=== PATIENT | male | born 1965 | race African-American/Black ===

== ENCOUNTER → 2020-01-22 | Day surgery (SDC) | payer OTHER ==
[2020-01-19 14:24] LABS: BASOPHILS # (AUTO) 0.1 (0.0-0.1); BASOPHILS % 0.5 % (0.0-1.0); EOSINOPHILS # (AUTO) 0.4 (0.0-0.4); EOSINOPHILS % 3.4 % (0.0-6.0); HEMATOCRIT 51.7 % (38.2-49.6); HEMOGLOBIN 16.5 g/dL (14.0-18.0); LYMPHOCYTES # (AUTO) 1.7 (1.0-3.2); LYMPHOCYTES % 15.2 % (18.0-39.1); MEAN CORPUSCULAR HGB CONC 31.9 g/dL (31-35); MEAN CORPUSCULAR VOLUME 90.9 fL (81-99); MONOCYTES % 8.6 % (4.4-11.3); NEUTROPHILS % 71.4 % (38.7-80.0); PLATELET COUNT 218 x10e3/uL (140-360); RED BLOOD COUNT 5.69 x10e6/uL (4.3-5.7); RED CELL DISTRIBUTION WIDTH 15.1 % (11.7-14.4)
--- NOTE | 2020-01-19 14:27 | Diagnostic Imaging Report ---
TECHNIQUE: Frontal and lateral views of the chest. INDICATION: ^PATIENT IS HERE FOR PREOP TESTING ^[id number] ^1400 ^PATIENT IS HERE FOR PREOP TESTING COMPARISON: None. IMPRESSION: Lines and hardware: None. Heart and mediastinum: Normal cardiomediastinal silhouette. Lungs and pleura: No focal airspace consolidation. No pleural effusion. No pneumothorax. Soft tissues and bones: No acute bony abnormality. Signed by: Stewart Malik MD on 01/19/2020 2:23 PM
[2020-01-19 14:42] LABS: ANION GAP 12.8 mmol/L (8-16); BLOOD UREA NITROGEN 10 mg/dL (7-26); BUN/CREATININE RATIO 9 (6-25); CALCIUM 9.9 mg/dL (8.4-10.2); CARBON DIOXIDE 25 mmol/L (22-29); CHLORIDE 106 mmol/L (98-107); CREATININE, SERUM 1.15 mg/dL (0.72-1.25); EST GLOMERULAR FILTRATION RATE > 60 ML/MIN (60-); GLUCOSE 86 mg/dL (74-118); POTASSIUM 4.8 mmol/L (3.5-5.1); SODIUM 139 mmol/L (136-145)
[~2020-01-22] MED LIST: BUPIVACAINE 0.5%/EPI 30 ML SDV INJ ONE; CEFAZOLIN SOD 1 GM/NS 50ML 50 ML IV ONE; DEXAMETHASONE SOD PHOS INJ 4 MG/ML VIAL ONE; EPHEDRINE SULFATE INJ 50 MG/ML VIAL ONE; HYDROCODONE/APAP 7.5MG-325MG 1 EA TAB ONE; HYDROMORPHONE 1MG/1ML INJ ONE; LIDOCAINE HCL 2% LOCAL INJ 5 ML SDV VIAL INJ ONE; MULTI-VITAMIN1 EACH PO; ONDANSETRON HCL INJ 2MG/ML 2ML 2 MG/ML VIAL ONE; PROPOFOL IV EMULSION 10 MG/ML 20 ML VIAL ONE; ROCURONIUM BROMIDE 10 MG/ML 5ML VIAL IV ONE; SEVOFLURANE INHAL SOLN 250 ML PEN BTL ONE
--- NOTE | 2020-01-22 11:48 | Operative Report ---
DATE OF PROCEDURE: SURGEON: Gama Rosales MD ADDENDUM: After the Ultrapro Hernia System oval type was deployed into the preperitoneal space, the overlay part of the mesh was deployed over the inguinal canal floor. A slit was made to accommodate the cord, then the mesh was secured to the local tissues using a series of interrupted 2-0 Ethibond sutures. At this point including a slit in the mesh to accommodate the cord. After we sutured the mesh to the local tissues, the mesh appeared to be laying flat both in the preperitoneal space as well as the overlay part of the mesh. The wound was irrigated. Bleeding points were cauterized. After the sponge and instrument counts were pronounced correct several times, we closed the wound using 0-Vicryl for the external aponeurosis, two plain catgut for the soft tissues, and the skin was closed using sheila. During this procedure, the ilioinguinal nerve was sacrificed to prevent neuroma formation. The patient tolerated the procedure well, was taken to recovery room in stable condition. MD POOL Crowe/MODL /[id number]
[2020-01-22 12:40] VITALS: BP 126/80
--- NOTE | 2020-01-26 11:08 | Operative Report ---
DATE OF PROCEDURE: 01/22/2020 SURGEON: Gama Rosales MD PREOPERATIVE DIAGNOSIS: Bilateral inguinal hernia. POSTOPERATIVE DIAGNOSIS: Bilateral inguinal hernia plus right groin adenopathy. PROCEDURE PERFORMED: Repair of right inguinal hernia with mesh and right groin lymphadenectomy. APPLICATIONS INSTRUCTOR: FLO Guzman ESTIMATED BLOOD LOSS: Minimal. DRAINS: None. COMPLICATIONS: None. INDICATION AND FINDINGS: This gentleman is a 54-year-old male complains of pain in both groins after lifting a heavy piece of metal at work from 2 days ago. The pain was graded on the right groin. He also noticed a bulge on the left groin that was also painful. He complained of pain when sitting down, which made him lay down. INTRAOPERATIVE FINDINGS: The patient had an indirect hernia sac with a wide neck and a narrow tip and there was enlargement of right spermatic cord node as well as an other right groin node enlargement also. They both appeared to be abnormal and they were removed for histopathological evaluation. For histological evaluation and to prevent confusion during the postoperative period as it is related to the clinical followup of the repair of the hernia in such a way that the physical examination could be more accurate postoperatively and not to confuse it with the recurrence or hematoma or any of those situations. DESCRIPTION OF PROCEDURE: With the patient lying on the operative table in the supine position after administration of general anesthesia, he was prepped and draped for repair of right inguinal hernia. Preemptive anesthesia was given with 0.25% Marcaine with epinephrine as an ilioinguinal nerve block. A transverse groin incision was made deepened through the skin, subcutaneous tissue until the external oblique aponeurosis was identified. This was incised along the course of its fibers transecting the external inguinal ring. Medial and lateral leaves were developed. The cord was mobilized at the level of the pubic tubercle and retracted away from the operative field by Ingrid drain. The cremaster veil was incised and a palpable nodule about 1 cm was found and it was excised and tied off with 2-0 Vicryl. We then continued the exploration of the spermatic cord, incised the cremaster, found an indirect hernia sac and then it was ligated with 2-0 silk transfixion suture. We proceeded to incise the transversalis fascia. We found the external inguinal vessels in the preperitoneal space and those were sacrificed because they were too close to the cord. The inferior epigastric vessels had to be ligated with 2-0 silk because they were too close to the cord and to the operative field where the mesh was going to be placed. After we incised the transversalis fascia and created a space to accommodate the mesh using blunt dissection, we placed the mesh in the preperitoneal space with the underlay part of the mesh over the direct space. DICTATION ENDS HERE. MD POOL Crowe/MODL /[id number]
== END | disposition home or self-care (01) ==
LOC: OR 05:14
PROVIDERS: ATTEND Surgery
DX: K40.90 Unilateral inguinal hernia, without obstruction or gangrene, not specified as recurrent (principal); R59.0 Localized enlarged lymph nodes; I10 Essential (primary) hypertension; F17.210 Nicotine dependence, cigarettes, uncomplicated; Z01.810 Encounter for preprocedural cardiovascular examination; Z01.812 Encounter for preprocedural laboratory examination; Z01.818 Encounter for other preprocedural examination; Z11.59 Encounter for screening for other viral diseases
CPT/HCPCS: 36415; 49505; 71046; 80048; 85025; 87635; 88305; 93005; C1781; J0690; J1100; J1170; J2001; J2405; J2704; 88304